=== PATIENT | female | born 1950 | race Caucasian/White ===

== ENCOUNTER → 2025-08-16 09:11 | Outpatient (CLI) | payer BC, SELFPAY ==
[2025-08-16 10:58] LABS: Alanine Aminotransferase 20 IU/L (<35); Albumin 4.3 g/dL (3.5-5.0); Albumin Globulin Ratio 1.5 (1.0-2.8); Alkaline Phosphatase 80 U/L (38-126); Blood Urea Nitrogen 18 mg/dL (7-17); Calcium 9.4 mg/dL (8.4-10.2); Carbon Dioxide 29 mmol/L (22-32); Chloride 104 mmol/L (98-107); Estimated Glomerular Filt Rate > 60 mL/min (>60); Globulin 2.8 g/dL (1.7-4.1); Glucose 90 mg/dL (70-99); HEMOLYSIS < 15 (0-50); Potassium 4.4 mmol/L (3.4-5.1); Sodium 141 mmol/L (137-145); Total Protein 7.1 g/dL (6.3-8.2)
[2025-08-16 11:08] LABS: Free T3, Triiodothyronine Free 3.86 pg/mL (2.77-5.27)
[2025-08-16 11:23] LABS: TSH w/ Reflex to FT4 0.52 uIU/mL (0.47-4.68)
[2025-08-16 11:40] LABS: Vitamin D 25 Hydroxy (D3) 61.2 ng/mL (30.0-100.0)
== END ==
PROVIDERS: PCP Family Medicine; Referring Provider Family Medicine; Visit Provider Family Medicine
DX: E03.9 Hypothyroidism, unspecified (principal); Z85.3 Personal history of malignant neoplasm of breast; E55.9 Vitamin D deficiency, unspecified
CPT/HCPCS: 36415; 80053; 82306; 84443; 84481; 86304